=== PATIENT | female | born 1940 | race Caucasian/White ===

== ENCOUNTER 2017-11-22 10:35 | Outpatient (REF) | payer MEDICARE, SELFPAY ==
[2017-11-22 21:27] LABS: Abs Immature Grans 0.03 k/cumm (0.0-0.09); Absolute Basophil Count 0.04 k/cumm (0.0-0.2); Absolute Eosinophil Count 0.58 k/cumm (0.0-0.7); Absolute Lymphocyte Count 2.71 k/cumm (1.2-3.4); Absolute Neutrophil Count 1.41 k/cumm (1.2-6.7); Basophils % 0.7; Eosinophils % 10.6; HCT 35.7 % (36.0-46.0); Immature Grans % 0.5; Lymphocytes % 49.5; Mean Corp. HGB Concentration 30.8 g/dL (32.0-36.0); Mean Corpuscular Hemoglobin 25.3 pg (27.0-33.0); Mean Corpuscular Volume 82.3 fL (80-95); Mean Platelet Volume 10.1 fL (8.0-11.0); Monocytes % 12.8; Neutrophils % 25.9; Platelet Count 407 x1000/uL (130-400); RBC 4.34 m/cumm (4.00-5.20); RBC Distribution Width 18.9 % (11.7-14.6); White Blood Cell Count 5.47 k/cumm (4.4-10.8)
[2017-11-22 21:37] LABS: Iron 42 ug/dL (50-175)
[2017-11-22 21:48] LABS: Vitamin B12 265 pg/mL (193-986)
[2017-11-22 22:52] LABS: Acanthocytes 2+; Diff Comment RBC Morph Reviewed
[2017-11-22 22:53] LABS: Burr Cells (echinocyte) 2+
[2017-11-24 09:31] LABS: Folate 8.4 ng/ml
[2017-11-24 10:27] LABS: IgA 155 mg/dL (85-499)
[2017-11-25 06:36] LABS: Vitamin D 25 Total 13.8 ng/ml (30-100)
== END 2017-11-22 10:36 ==
LOC: NCHCN 10:35
PROVIDERS: PCP Nurse Practitioner Family; Visit Provider Nurse Practitioner Family
DX: K90.0 Celiac disease (principal); I10 Essential (primary) hypertension; D64.9 Anemia, unspecified; E55.9 Vitamin D deficiency, unspecified; M81.0 Age-related osteoporosis without current pathological fracture
CPT/HCPCS: 82306; 82784; 82607; 82746; 83540; 85025

== ENCOUNTER 2018-02-21 09:34 | Outpatient (REF) | payer MEDICARE, SELFPAY ==
[2018-02-21 21:10] LABS: Abs Immature Grans 0.02 k/cumm (0.0-0.09); Absolute Basophil Count 0.04 k/cumm (0.0-0.2); Absolute Lymphocyte Count 2.67 k/cumm (1.2-3.4); Absolute Monocyte Count 0.67 k/cumm (0.11-0.7); Absolute Neutrophil Count 3.24 k/cumm (1.2-6.7); Basophils % 0.6; Eosinophils % 5.7; HCT 35.4 % (36.0-46.0); HGB 10.9 g/dL (12.0-15.5); Immature Grans % 0.3; Lymphocytes % 37.9; Mean Corp. HGB Concentration 30.8 g/dL (32.0-36.0); Mean Corpuscular Hemoglobin 26.4 pg (27.0-33.0); Mean Corpuscular Volume 85.7 fL (80-95); Monocytes % 9.5; Platelet Count 560 x1000/uL (130-400); RBC 4.13 m/cumm (4.00-5.20); RBC Distribution Width 15.9 % (11.7-14.6); White Blood Cell Count 7.04 k/cumm (4.4-10.8)
[2018-02-21 21:32] LABS: Iron 29 ug/dL (50-175)
[2018-02-21 21:55] LABS: Vitamin D 25 Total 12.3 ng/ml (30-100)
[2018-02-21 21:57] LABS: Anion Gap 8.6 mmol/L (3-11); BUN 14 mg/dL (7-18); CO2 24.4 mmol/L (21.0-32.0); CREATININE 0.81 mg/dL (0.55-1.02); Calcium 8.1 mg/dL (8.5-10.1); Chloride 108 mmol/L (98-107); Folate 3.7 ng/mL (8.6-20.0); Glucose 108 mg/dL (70-100); Potassium 4.4 mmol/L (3.5-5.1); Sodium 141 mmol/L (136-145)
[2018-02-22 20:00] LABS: Vitamin B12 233 pg/mL (193-986)
[2018-02-23 15:57] LABS: Tissue Transglutaminase Ab IgA 45.2 U/mL
== END 2018-02-21 09:54 ==
LOC: NCHCN 09:34
PROVIDERS: PCP Nurse Practitioner Family; Visit Provider Nurse Practitioner Family
DX: I10 Essential (primary) hypertension (principal); K90.0 Celiac disease; E55.9 Vitamin D deficiency, unspecified; D64.9 Anemia, unspecified
CPT/HCPCS: 80048; 82306; 82607; 82746; 83516; 83540; 85025

== ENCOUNTER 2018-06-23 11:48 | Outpatient (REF) | payer MEDICARE, OTHER, SELFPAY ==
[2018-06-23 22:04] LABS: Iron 43 ug/dL (50-175); Total Iron Binding Capacity 381 ug/dL (250-450); Transferrin Sat 11 % (15-50)
[2018-06-23 22:08] LABS: HCT 36.6 % (36.0-46.0); HGB 11.7 g/dL (12.0-15.5); Mean Corpuscular Hemoglobin 26.5 pg (27.0-33.0); Mean Platelet Volume 9.3 fL (8.0-11.0); Platelet Count 489 x1000/uL (130-400); RBC 4.41 m/cumm (4.00-5.20); RBC Distribution Width 17.6 % (11.7-14.6); White Blood Cell Count 6.76 k/cumm (4.4-10.8)
[2018-06-23 22:32] LABS: Anion Gap 10.2 mmol/L (3-11); BUN 12 mg/dL (7-18); CO2 20.8 mmol/L (21.0-32.0); CREATININE 0.82 mg/dL (0.55-1.02); Calcium 8.1 mg/dL (8.5-10.1); Chloride 110 mmol/L (98-107); Folate 4.4 ng/mL (8.6-20.0); Glucose 94 mg/dL (70-100); Potassium 4.3 mmol/L (3.5-5.1); Sodium 141 mmol/L (136-145); Vitamin B12 258 pg/mL (193-986); Vitamin D 25 Total 8.7 ng/ml (30-100)
[2018-06-25 14:19] LABS: Tissue Transglutaminase Ab IgA 65.1 U/mL
== END 2018-06-23 12:08 ==
LOC: NCHCN 11:48
PROVIDERS: PCP Nurse Practitioner Family; Visit Provider Nurse Practitioner Family
DX: D64.9 Anemia, unspecified (principal); I10 Essential (primary) hypertension; K90.0 Celiac disease
CPT/HCPCS: 80048; 82306; 85027; 82607; 82746; 83516; 83540; 83550

== ENCOUNTER 2018-08-23 21:28 | Outpatient (REF) | payer MEDICARE, OTHER, SELFPAY ==
[2018-08-23 21:31] LABS: HCT 36.2 % (36.0-46.0); HGB 11.5 g/dL (12.0-15.5); Mean Corp. HGB Concentration 31.8 g/dL (32.0-36.0); Mean Corpuscular Hemoglobin 26.5 pg (27.0-33.0); Mean Corpuscular Volume 83.4 fL (80-95); Mean Platelet Volume 9.2 fL (8.0-11.0); Platelet Count 503 x1000/uL (130-400); RBC 4.34 m/cumm (4.00-5.20); RBC Distribution Width 17.1 % (11.7-14.6); White Blood Cell Count 7.99 k/cumm (4.4-10.8)
[2018-08-23 21:51] LABS: Iron 29 ug/dL (50-175)
[2018-08-23 22:12] LABS: ALT 40 U/L (12-78); AST 27 U/L (15-37); Albumin 3.1 g/dL (3.4-5.0); Alkaline Phosphatase 200 U/L (46-116); Anion Gap 10.5 mmol/L (3-11); BUN 9 mg/dL (7-18); Bilirubin, Total 0.2 mg/dL (0.2-1.0); CO2 22.5 mmol/L (21.0-32.0); CREATININE 0.73 mg/dL (0.55-1.02); Calcium 8.1 mg/dL (8.5-10.1); Chloride 109 mmol/L (98-107); Folate 4.1 ng/mL (8.6-20.0); Glucose 98 mg/dL (70-100); Potassium 4.2 mmol/L (3.5-5.1); Sodium 142 mmol/L (136-145); Total Protein 5.9 g/dL (6.4-8.2)
[2018-08-23 22:25] LABS: PHOSPHORUS 4.1 mg/dL (2.6-4.7)
[2018-08-25 06:39] LABS: Vitamin D 25 Total 6.1 ng/ml (30-100)
[2018-08-25 10:53] LABS: Parathyroid Hormone,Intact 195 pg/ml (19-88)
== END 2018-08-23 21:48 ==
LOC: NCHCN 21:28
PROVIDERS: PCP Nurse Practitioner Family; Visit Provider Nurse Practitioner Family
DX: K90.0 Celiac disease (principal); D64.9 Anemia, unspecified; D50.9 Iron deficiency anemia, unspecified; I10 Essential (primary) hypertension; E55.9 Vitamin D deficiency, unspecified; K90.9 Intestinal malabsorption, unspecified; M81.0 Age-related osteoporosis without current pathological fracture
CPT/HCPCS: 80053; 82306; 85027; 82746; 83540; 83735; 83970; 84100

== ENCOUNTER 2018-12-20 10:00 | Outpatient (REF) | payer MEDICARE, OTHER, SELFPAY ==
[2018-12-20 21:28] LABS: HCT 38.3 % (36.0-46.0); Mean Corp. HGB Concentration 31.3 g/dL (32.0-36.0); Mean Corpuscular Hemoglobin 26.3 pg (27.0-33.0); Mean Corpuscular Volume 83.8 fL (80-95); Mean Platelet Volume 9.3 fL (8.0-11.0); Platelet Count 534 x1000/uL (130-400); RBC 4.57 m/cumm (4.00-5.20); RBC Distribution Width 16.3 % (11.7-14.6); White Blood Cell Count 6.33 k/cumm (4.4-10.8)
[2018-12-20 21:41] LABS: Iron 27 ug/dL (50-175)
[2018-12-20 22:10] LABS: ALT 36 U/L (14-59); AST 26 U/L (15-37); Albumin 3.1 g/dL (3.4-5.0); Alkaline Phosphatase 157 U/L (46-116); Anion Gap 10.3 mmol/L (3-11); BUN 10 mg/dL (7-18); Bilirubin, Total 0.2 mg/dL (0.2-1.0); CO2 22.7 mmol/L (21.0-32.0); Calcium 7.9 mg/dL (8.5-10.1); Chloride 110 mmol/L (98-107); Ferritin 11 ng/mL (8-388); Folate 3.7 ng/mL (8.6-20.0); Glucose 87 mg/dL (70-100); Potassium 4.7 mmol/L (3.5-5.1); Sodium 143 mmol/L (136-145); Total Protein 6.1 g/dL (6.4-8.2); Vitamin B12 278 pg/mL (193-986)
[2018-12-22 04:49] LABS: Vitamin D 25 Total 17.7 ng/ml (30-100)
== END 2018-12-20 10:20 ==
LOC: NCHCN 10:00
PROVIDERS: PCP Nurse Practitioner Family; Visit Provider Nurse Practitioner Family
DX: K90.0 Celiac disease (principal); K90.9 Intestinal malabsorption, unspecified; D64.9 Anemia, unspecified; E55.9 Vitamin D deficiency, unspecified; D50.9 Iron deficiency anemia, unspecified; G56.00 Carpal tunnel syndrome, unspecified upper limb; I10 Essential (primary) hypertension
CPT/HCPCS: 80053; 82306; 85027; 82607; 82728; 82746; 83516; 83540

== ENCOUNTER 2019-03-20 09:03 | Outpatient (REF) | payer MEDICARE, OTHER, SELFPAY ==
[2019-03-20 21:25] LABS: HCT 37.6 % (36.0-46.0); HGB 11.8 g/dL (12.0-15.5); Mean Corp. HGB Concentration 31.4 g/dL (32.0-36.0); Mean Corpuscular Hemoglobin 26.5 pg (27.0-33.0); Mean Corpuscular Volume 84.5 fL (80-95); Mean Platelet Volume 9.1 fL (8.0-11.0); Platelet Count 514 x1000/uL (130-400); RBC 4.45 m/cumm (4.00-5.20); RBC Distribution Width 15.8 % (11.7-14.6); White Blood Cell Count 7.61 k/cumm (4.4-10.8)
[2019-03-20 21:29] LABS: Iron 55 ug/dL (50-170)
[2019-03-20 21:54] LABS: ALT 34 U/L (14-59); AST 24 U/L (15-37); Albumin 3.1 g/dL (3.4-5.0); Alkaline Phosphatase 161 U/L (46-116); Anion Gap 12.6 mmol/L (3-11); BUN 14 mg/dL (7-18); Bilirubin, Total 0.3 mg/dL (0.2-1.0); CO2 17.4 mmol/L (21.0-32.0); CREATININE 0.79 mg/dL (0.55-1.02); Calcium 8.1 mg/dL (8.5-10.1); Chloride 111 mmol/L (98-107); Ferritin 11 ng/mL (8-252); Folate 3.2 ng/mL (8.6-20.0); Glucose 94 mg/dL (74-106); Potassium 4.3 mmol/L (3.5-5.1); Sodium 141 mmol/L (136-145); Total Protein 5.9 g/dL (6.4-8.2); Vitamin B12 179 pg/mL (193-986)
[2019-03-20 21:55] LABS: Vitamin D 25 Total 9.6 ng/ml (30-100)
[2019-03-22 22:04] LABS: Tissue Transglutaminase Ab IgA 96.6 U/mL; Tissue Transglutaminase Ab IgG 54.5 U/mL
== END 2019-03-20 09:23 ==
LOC: NCHCN 09:03
PROVIDERS: PCP Nurse Practitioner Family; Visit Provider Nurse Practitioner Family
DX: K90.0 Celiac disease (principal); K90.9 Intestinal malabsorption, unspecified; M81.0 Age-related osteoporosis without current pathological fracture; I10 Essential (primary) hypertension; G56.00 Carpal tunnel syndrome, unspecified upper limb
CPT/HCPCS: 80053; 82306; 85027; 82607; 82728; 82746; 83516; 83540

== ENCOUNTER 2019-09-18 14:25 | Outpatient (REF) | payer OTHER, SELFPAY ==
[2019-09-18 20:39] LABS: HGB 11.9 g/dL (12.0-15.5); Mean Corp. HGB Concentration 31.3 g/dL (32.0-36.0); Mean Corpuscular Hemoglobin 26.7 pg (27.0-33.0); Mean Corpuscular Volume 85.4 fL (80-95); Mean Platelet Volume 9.1 fL (8.0-11.0); Platelet Count 600 x1000/uL (130-400); RBC 4.45 m/cumm (4.00-5.20); RBC Distribution Width 15.8 % (11.7-14.6); White Blood Cell Count 6.58 k/cumm (4.4-10.8)
[2019-09-18 21:49] LABS: ALT 37 U/L (14-59); AST 26 U/L (15-37); Albumin 3.5 g/dL (3.4-5.0); Alkaline Phosphatase 169 U/L (46-116); Anion Gap 6.9 mmol/L (3-11); BUN 13 mg/dL (7-18); Bilirubin, Total 0.2 mg/dL (0.2-1.0); CO2 25.1 mmol/L (21.0-32.0); CREATININE 0.88 mg/dL (0.55-1.02); Calcium 8.6 mg/dL (8.5-10.1); Chloride 106 mmol/L (98-107); Folate 3.6 ng/mL (8.6-20.0); Glucose 93 mg/dL (74-106); Iron 21 ug/dL (50-170); Potassium 5.1 mmol/L (3.5-5.1); Sodium 138 mmol/L (136-145); Total Protein 6.6 g/dL (6.4-8.2); Vitamin B12 247 pg/mL (193-986)
== END 2019-09-18 14:45 ==
LOC: NCHCN 14:25
PROVIDERS: PCP Nurse Practitioner Family; Visit Provider Nurse Practitioner Family
DX: I10 Essential (primary) hypertension (principal); E55.9 Vitamin D deficiency, unspecified; D64.9 Anemia, unspecified; D53.1 Other megaloblastic anemias, not elsewhere classified; K90.9 Intestinal malabsorption, unspecified; K90.0 Celiac disease
CPT/HCPCS: 80053; 82306; 85027; 82607; 82746; 83540

== ENCOUNTER 2022-02-10 16:45 | Outpatient (REF) | payer MEDICARE, SELFPAY ==
[2022-02-10 23:18] LABS: Iron 32 ug/dL (50-170)
[2022-02-10 23:27] LABS: ALT 30 U/L (14-59); AST 31 U/L (15-37); Albumin 3.6 g/dL (3.4-5.0); Alkaline Phosphatase 120 U/L (46-116); Anion Gap 9.5 mmol/L (3-11); BUN 15 mg/dL (7-18); Bilirubin, Total 0.2 mg/dL (0.2-1.0); CO2 23.5 mmol/L (21.0-32.0); CREATININE 0.9 mg/dL (0.55-1.02); Calcium 8.7 mg/dL (8.5-10.1); Chloride 107 mmol/L (98-107); Estimated GFR 64.23 (mL/min/1.73m2); Glucose 96 mg/dL (74-106); Potassium 4.8 mmol/L (3.5-5.1); Sodium 140 mmol/L (136-145)
[2022-02-10 23:56] LABS: HCT 39.3 % (36.0-46.0); HGB 12.9 g/dL (11.2-15.7); MCH 28.2 pg (27.0-33.0); MCHC 32.8 % (32.0-36.0); MCV 86 fL (80-95); MPV 9.9 fL (8.0-11.0); Platelet Count 446 10^3/uL (130-400); RBC 4.58 10^6/uL (3.93-5.22); RDW 14.9 % (11.7-14.6); RDW-SD 46.9 fL; WBC 9.47 10^3/uL (4.4-10.8)
[2022-02-11 10:24] LABS: Vitamin D 25 Total 19.5 ng/mL (30-100)
== END 2022-02-10 16:46 | disposition home or self-care (01) ==
LOC: NCHCN 16:45
PROVIDERS: PCP Nurse Practitioner Family; Visit Provider Family Medicine
DX: D64.9 Anemia, unspecified (principal); K90.9 Intestinal malabsorption, unspecified; K90.0 Celiac disease; E55.9 Vitamin D deficiency, unspecified; D47.3 Essential (hemorrhagic) thrombocythemia; I10 Essential (primary) hypertension; D53.1 Other megaloblastic anemias, not elsewhere classified
CPT/HCPCS: 80053; 82306; 85027; 82746; 83540

== ENCOUNTER 2022-12-18 12:24 | Outpatient (REF) | payer MEDICARE, SELFPAY ==
[2022-12-18 15:08] LABS: Abs Immature Grans 0.02 10^3/uL (0.0-0.06); Absolute Basophil Count 0.05 10^3/uL (0.0-0.2); Absolute Eosinophil Count 0.48 10^3/uL (0.0-0.7); Absolute Lymphocyte Count 3.27 10^3/uL (1.2-3.4); Absolute Monocyte Count 0.69 10^3/uL (0.1-0.8); Absolute Neutrophil Count 3.38 10^3/uL (1.2-6.7); Basophils % 0.6; Eosinophils % 6.1; HCT 38.1 % (36.0-46.0); HGB 12.5 g/dL (11.2-15.7); Immature Grans % 0.3; Lymphocytes % 41.4; MCH 28.5 pg (27.0-33.0); MCHC 32.8 % (32.0-36.0); MCV 87 fL (80-95); MPV 9.5 fL (8.0-11.0); Monocytes % 8.7; Neutrophils % 42.9; Platelet Count 435 10^3/uL (130-400); RBC 4.38 10^6/uL (3.93-5.22); RDW 15.1 % (11.7-14.6); RDW-SD 48.6 fL; WBC 7.89 10^3/uL (4.4-10.8)
[2022-12-18 15:46] LABS: ALT 31 U/L (14-59); AST 21 U/L (15-37); Albumin 3.2 g/dL (3.4-5.0); Alkaline Phosphatase 108 U/L (46-116); Anion Gap 9.3 mmol/L (3-11); BUN 16 mg/dL (7-18); Bilirubin, Total 0.4 mg/dL (0.2-1.0); CO2 24.7 mmol/L (21.0-32.0); CREATININE 0.7 mg/dL (0.55-1.02); Calcium 8.7 mg/dL (8.5-10.1); Chloride 110 mmol/L (98-107); Estimated GFR 86.83 (mL/min/1.73m2); Ferritin 15 ng/mL (8-252); Folate 5.5 ng/mL (8.6-20.0); Glucose 94 mg/dL (74-106); Potassium 4.2 mmol/L (3.5-5.1); Sodium 144 mmol/L (136-145); TSH (W/Ref FT4) 3.76 uIU/mL (0.36-3.74); Vitamin B12 195 pg/mL (193-986)
[2022-12-18 16:28] LABS: FREE T4 0.82 ng/dL (0.76-1.46)
[2022-12-18 16:30] LABS: Iron 93 ug/dL (50-170); Total Iron Binding Capacity 396 ug/dL (250-450)
[2022-12-18 16:53] LABS: Vitamin D 25 Total 18.9 ng/mL (30-100)
== END 2022-12-18 12:25 | disposition home or self-care (01) ==
LOC: NCHCN 12:24
PROVIDERS: PCP Nurse Practitioner Family; Visit Provider Family Medicine
DX: D47.3 Essential (hemorrhagic) thrombocythemia (principal); R41.3 Other amnesia; I10 Essential (primary) hypertension; K90.0 Celiac disease; D50.9 Iron deficiency anemia, unspecified; M81.0 Age-related osteoporosis without current pathological fracture; E55.9 Vitamin D deficiency, unspecified
CPT/HCPCS: 80053; 82306; 82607; 82728; 82746; 83540; 83550; 84439; 84443; 85025

== ENCOUNTER 2023-04-29 13:39 | Outpatient (REF) | payer MEDICARE, SELFPAY ==
[2023-04-29 21:42] LABS: HGB 14.5 g/dL (11.2-15.7); MCH 29.7 pg (27.0-33.0); MCV 90 fL (80-95); MPV 9.7 fL (8.0-11.0); Platelet Count 383 10^3/uL (130-400); RBC 4.89 10^6/uL (3.93-5.22); RDW 14.9 % (11.7-14.6); RDW-SD 49.5 fL; WBC 9.13 10^3/uL (4.4-10.8)
[2023-04-29 22:08] LABS: Iron 76 ug/dL (50-170); Total Iron Binding Capacity 349 ug/dL (250-450); Transferrin Sat 22 % (15-50)
[2023-04-29 22:21] LABS: Vitamin D 25 Total 19.5 ng/mL (30-100)
[2023-04-29 22:24] LABS: ALT 32 U/L (14-59); AST 20 U/L (15-37); Albumin 3.6 g/dL (3.4-5.0); Alkaline Phosphatase 109 U/L (46-116); Anion Gap 6.3 mmol/L (3-11); BUN 12 mg/dL (7-18); Bilirubin, Total 0.3 mg/dL (0.2-1.0); CO2 24.7 mmol/L (21.0-32.0); CREATININE 0.8 mg/dL (0.55-1.02); Calcium 8.7 mg/dL (8.5-10.1); Chloride 109 mmol/L (98-107); Estimated GFR 73.52 (mL/min/1.73m2); Glucose 83 mg/dL (74-106); Potassium 4.4 mmol/L (3.5-5.1); Sodium 140 mmol/L (136-145); Total Protein 7.2 g/dL (6.4-8.2); Vitamin B12 461 pg/mL (193-986)
[2023-04-29 22:29] LABS: Folate > 20.0 ng/mL (8.6-20.0)
[2023-04-30] LABS: Ferritin 61 ng/mL (8-252)
== END 2023-04-29 13:40 | disposition home or self-care (01) ==
LOC: NCHCN 13:39
PROVIDERS: PCP Nurse Practitioner Family; Visit Provider Nurse Practitioner Family
DX: K90.9 Intestinal malabsorption, unspecified (principal)
CPT/HCPCS: 80053; 82306; 85027; 82607; 82728; 82746; 83540; 83550

== ENCOUNTER 2024-02-07 16:09 | Outpatient (REF) | payer MEDICARE, SELFPAY ==
[2024-02-07 16:01] LABS: HCT 40.5 % (36.0-46.0); HGB 13.2 g/dL (11.2-15.7); MCH 30.4 pg (27.0-33.0); MCHC 32.6 % (32.0-36.0); MCV 93 fL (80-95); MPV 10.1 fL (8.0-11.0); Platelet Count 367 10^3/uL (130-400); RBC 4.34 10^6/uL (3.93-5.22); RDW 15.4 % (11.7-14.6); RDW-SD 53.1 fL; WBC 8.31 10^3/uL (4.4-10.8)
[2024-02-07 17:58] LABS: Iron 73 ug/dL (50-170); Total Iron Binding Capacity 244 ug/dL (250-450); Transferrin Sat 30 % (15-50)
[2024-02-07 18:11] LABS: Anion Gap 12.1 mmol/L (3-11); BUN 14 mg/dL (7-18); CO2 17.9 mmol/L (21.0-32.0); CREATININE 0.9 mg/dL (0.55-1.02); Calcium 8.3 mg/dL (8.5-10.1); Chloride 114 mmol/L (98-107); Estimated GFR 63.43 (mL/min/1.73m2); Glucose 97 mg/dL (74-106); Potassium 4.5 mmol/L (3.5-5.1); Sodium 144 mmol/L (136-145); Vitamin B12 167 pg/mL (193-986); Vitamin D 25 Total 11.3 ng/mL (30-100)
== END 2024-02-07 16:10 | disposition home or self-care (01) ==
LOC: NCHCN 16:09
PROVIDERS: PCP Nurse Practitioner Family; Visit Provider Nurse Practitioner Family
DX: K90.9 Intestinal malabsorption, unspecified (principal)
CPT/HCPCS: 80048; 82306; 85027; 82607; 83540; 83550

== ENCOUNTER 2025-01-15 15:52 | Outpatient (REF) | payer MEDICARE, SELFPAY ==
[2025-01-15 21:52] LABS: Iron 74 ug/dL (50-170); Total Iron Binding Capacity 391 ug/dL (250-450); Transferrin Sat 19 % (15-50)
[2025-01-15 22:08] LABS: Anion Gap 8.7 mmol/L (3-11); BUN 18 mg/dL (7-18); CO2 27.3 mmol/L (21.0-32.0); Calcium 8.5 mg/dL (8.5-10.1); Chloride 108 mmol/L (98-107); Estimated GFR 85.23 (mL/min/1.73m2); Ferritin 34 ng/mL (8-252); Glucose 101 mg/dL (74-106); Potassium 4.6 mmol/L (3.5-5.1); Sodium 144 mmol/L (136-145); Vitamin B12 188 pg/mL (193-986); Vitamin D 25 Total 13 ng/mL (30-100)
== END 2025-01-15 15:53 | disposition home or self-care (01) ==
LOC: NCHCN 15:52
PROVIDERS: PCP Nurse Practitioner Family; Visit Provider Family Medicine
DX: D50.9 Iron deficiency anemia, unspecified (principal); E55.9 Vitamin D deficiency, unspecified
CPT/HCPCS: 80048; 82306; 82607; 82728; 83540; 83550